=== PATIENT | female | born 2000 | race Caucasian/White ===

== ENCOUNTER 2019-04-13 04:02 | Emergency (ER) | payer OTHER, SELFPAY ==
--- NOTE | 2019-04-13 04:04 | ED.CHESTPAIN ---
HPI - Chest Pain <Prasad Hunter DO - Last Filed: 04/13/19 17:34> General Chief Complaint: Chest Pain Stated Complaint: woke up with chest pain right side Time Seen by Provider: 04/13/19 04:04 Source: patient and family Mode of arrival: ambulatory Limitations: no limitations History of Present Illness HPI narrative: 18-year-old female nonsmoker with benign medical history presents with the chief complaint of right-sided sharp and stabbing chest pain that radiates around to her back. It is made worse with palpation and some range of motion. She denies any recent illness such as runny nose, sneezing or coughing. Patient denies , has IUD Related Data Previous Rx's Medication Instructions Recorded cephalexin [Keflex] 500 mg PO QID 5 Days #20 cap 04/13/19 Review of Systems <Prasad Hunter DO - Last Filed: 04/13/19 17:34> Constitutional Denies chills, Denies fever(s), Denies lethargy and Denies weakness Eyes Denies change in vision, Denies eye discharge, Denies irritation and Denies loss of vision ENT Ears, Nose, Mouth, and Throat: Denies change in voice, Denies neck pain and Denies sore throat Cardiovascular Reports chest pain, Denies irregular heart rhythm, Denies lightheadedness, Denies palpitations, Denies dyspnea, Denies dyspnea on exertion and Denies orthopnea Respiratory Denies cough, Denies dyspnea, Denies dyspnea on exertion and Denies wheezing Gastrointestinal Gastrointestinal: Denies abdominal pain, Denies change in bowel habits, Denies diarrhea, Denies nausea and Denies vomiting Genitourinary Denies hematuria, Denies flank pain, Denies urinary incontinence and Denies urinary urgency Musculoskeletal Denies neck pain Integumentary/Breasts Denies pruritus, Denies erythema, Denies rash and Denies wounds Neurologic Denies confusion, Denies loss of vision and Denies weakness Psychiatric Denies anxiety, Denies confusion, Denies depression, Denies homicidal ideation and Denies suicidal ideation Endocrine Denies palpitations Hematologic/Lymphatic Denies easy bruising Allergic/Immunologic Denies wheezing PFSH <Prasad Hunter DO - Last Filed: 04/13/19 17:34> Social History Smoking Status: Never smoker Social History Smoking Status: Never smoker Exam <Prasad Hunter DO - Last Filed: 04/13/19 17:34> Narrative Exam Narrative: GENERAL: [18] year old patient appears stated age. Well-nourished, well-developed patient, in mild distress. HEAD: Atraumatic. Normocephalic. EYES: Pupils equal round and reactive. Extraocular motions intact. No scleral icterus. No injection or drainage. ENT: Nose without bleeding, purulent drainage. Throat without erythema, tonsillar hypertrophy or exudate. Airway patent. NECK: Trachea midline. Non tender CARDIOVASCULAR: Regular rate and rhythm without murmurs, gallops, or rubs. Right-sided chest tender to palpation RESPIRATORY: Clear to auscultation. Breath sounds equal bilaterally. No wheezes, rales, or rhonchi. GASTROINTESTINAL: Abdomen soft, non-tender, nondistended. EXTREMITIES: No edema or joint tenderness. BACK: Nontender without deformity or crepitance. No flank tenderness. NEURO: AOx3. SKIN: No rash or erythema of visible areas Initial Vital Signs Initial Vital Signs: Vital Signs Temperature 97.6 F 04/13/19 04:05 Pulse Rate 75 04/13/19 04:05 Respiratory Rate 18 04/13/19 04:05 Blood Pressure 118/79 04/13/19 04:05 Pulse Oximetry 100 04/13/19 04:05 <Kenna Farrar DO - Last Filed: 04/13/19 07:58> Initial Vital Signs Initial Vital Signs: Vital Signs Temperature 97.6 F 04/13/19 04:05 Pulse Rate 75 04/13/19 04:05 Respiratory Rate 18 04/13/19 04:05 Blood Pressure 118/79 04/13/19 04:05 Pulse Oximetry 100 04/13/19 04:05 Course <Prasad Hunter DO - Last Filed: 04/13/19 17:34> Orders Ordered: ED Orders 04/13/19 EKG-12 Lead Stat 04/13/19 04:26 XR chest 2V Stat 04/13/19 06:00 Basic Metabolic Panel Stat Complete Blood Count AUTO DIFF Stat D Dimer Stat Troponin I Stat 04/13/19 07:33 Urine Microscopic Stat 04/13/19 07:35 CT angio chest PE protocol Stat Vital Signs - 8 hr 04/13/19 04:05 04/13/19 06:23 Temperature 97.6 F Pulse Rate 75 66 Respiratory Rate 18 16 Blood Pressure 118/79 Blood Pressure [Right Arm] 105/57 L Pulse Oximetry 100 98 <Kenna Farrar DO - Last Filed: 04/13/19 07:58> Orders Ordered: ED Orders 04/13/19 EKG-12 Lead Stat 04/13/19 04:26 XR chest 2V Stat 04/13/19 06:00 Basic Metabolic Panel Stat Complete Blood Count AUTO DIFF Stat D Dimer Stat Troponin I Stat 04/13/19 07:33 Urine Microscopic Stat 04/13/19 07:35 CT angio chest PE protocol Stat Vital Signs - 8 hr 04/13/19 04:05 04/13/19 06:23 Temperature 97.6 F Pulse Rate 75 66 Respiratory Rate 18 16 Blood Pressure 118/79 Blood Pressure [Right Arm] 105/57 L Pulse Oximetry 100 98 MDM - Chest Pain <Prasad Hunter DO - Last Filed: 04/13/19 17:34> Lab Data Result diagrams: 04/13/19 06:00 04/13/19 06:00 Lab Results 04/13/19 04/13/19 04/13/19 Range/Units 06:00 06:00 06:00 WBC 5.4 (4.5-11.0) X10^3/uL RBC 3.97 L (4.0-5.2) X10^6/uL Hgb 12.2 (12.0-16.0) g/dL Hct 35.6 L (36-46) % MCV 89.7 (80-100) fL MCH 30.8 (26-34) PG MCHC 34.3 (30-36) % RDW 12.7 (11.6-14.8) % Plt Count 143 L (150-400) X10^3/uL Neut % (Auto) 62.4 (50-75) % Lymph % (Auto) 27.1 (25-40) % [place] % (Auto) 7.7 (3-14) % Eos % (Auto) 2.4 (2-4) % Baso % (Auto) 0.4 (0-2) % Neut # (Auto) 3300 (2030-8460) /uL Lymph # (Auto) 1500 (7550-6442) /uL [place] # (Auto) 400 (0-900) /uL Eos # (Auto) 100 (0-450) /uL Baso # (Auto) 0 (0-100) /uL D-Dimer 426 H (<230) ng/mL Sodium 140 (137-145) mmol/L Potassium 4.3 (3.4-5.1) mmol/L Chloride 106 (98-107) mmol/L Carbon Dioxide 28 (22-32) mmol/L BUN 10 (7-17) mg/dL Creatinine 0.70 (0.52-1.04) mg/dL Estimated GFR > 60.0 (>60) mL/min BUN/Creatinine Ratio 14.3 (6-22) Glucose 88 (70-100) mg/dL Calcium 9.4 (8.4-10.2) mg/dL Troponin I < 0.012 (0.01-0.034) ng/mL Urine RBC (0-5/HPF) Urine WBC (0-5/HPF) Ur Squamous Epith Cells (0-5/HPF) Urine Bacteria (None) Urine Yeast (None) Ur Culture Indicated? Micro UA Comment 04/13/19 Range/Units 07:33 WBC (4.5-11.0) X10^3/uL RBC (4.0-5.2) X10^6/uL Hgb (12.0-16.0) g/dL Hct (36-46) % MCV (80-100) fL MCH (26-34) PG MCHC (30-36) % RDW (11.6-14.8) % Plt Count (150-400) X10^3/uL Neut % (Auto) (50-75) % Lymph % (Auto) (25-40) % [place] % (Auto) (3-14) % Eos % (Auto) (2-4) % Baso % (Auto) (0-2) % Neut # (Auto) (2302-1005) /uL Lymph # (Auto) (1629-9191) /uL [place] # (Auto) (0-900) /uL Eos # (Auto) (0-450) /uL Baso # (Auto) (0-100) /uL D-Dimer (<230) ng/mL Sodium (137-145) mmol/L Potassium (3.4-5.1) mmol/L Chloride (98-107) mmol/L Carbon Dioxide (22-32) mmol/L BUN (7-17) mg/dL Creatinine (0.52-1.04) mg/dL Estimated GFR (>60) mL/min BUN/Creatinine Ratio (6-22) Glucose (70-100) mg/dL Calcium (8.4-10.2) mg/dL Troponin I (0.01-0.034) ng/mL Urine RBC 0-1/hpf (0-5/HPF) Urine WBC 5-10/hpf H (0-5/HPF) Ur Squamous Epith Cells 10-30 /hpf H (0-5/HPF) Urine Bacteria Many (>30) H (None) Urine Yeast 0-1/hpf (None) Ur Culture Indicated? Culture not indicate Micro UA Comment Point of Care Testing Test Results Negative Urine Dip Bedside Urine Glucose Negative Bedside Urine Bilirubin - Negative Bedside Urine Ketone +/- 5 Urine Specific [place] 1.030 Bedside Urine Occult Blood +/- Bedside Urine pH 6.0 Bedside Urine Protein - Negative Bedside Urine Urobilinogen +/- 1mg Bedside Urine Nitrite - Negative Bedside Urine Leukocytes ++ 125 Esterase <Kenna Farrar, DO - Last Filed: 04/13/19 07:58> Lab Data Attestation: I reviewed the patient's lab results. Lab Results 04/13/19 04/13/19 04/13/19 Range/Units 06:00 06:00 06:00 WBC 5.4 (4.5-11.0) X10^3/uL RBC 3.97 L (4.0-5.2) X10^6/uL Hgb 12.2 (12.0-16.0) g/dL Hct 35.6 L (36-46) % MCV 89.7 (80-100) fL MCH 30.8 (26-34) PG MCHC 34.3 (30-36) % RDW 12.7 (11.6-14.8) % Plt Count 143 L (150-400) X10^3/uL Neut % (Auto) 62.4 (50-75) % Lymph % (Auto) 27.1 (25-40) % [place] % (Auto) 7.7 (3-14) % Eos % (Auto) 2.4 (2-4) % Baso % (Auto) 0.4 (0-2) % Neut # (Auto) 3300 (8505-8166) /uL Lymph # (Auto) 1500 (2305-5018) /uL [place] # (Auto) 400 (0-900) /uL Eos # (Auto) 100 (0-450) /uL Baso # (Auto) 0 (0-100) /uL D-Dimer 426 H (<230) ng/mL Sodium 140 (137-145) mmol/L Potassium 4.3 (3.4-5.1) mmol/L Chloride 106 (98-107) mmol/L Carbon Dioxide 28 (22-32) mmol/L BUN 10 (7-17) mg/dL Creatinine 0.70 (0.52-1.04) mg/dL Estimated GFR > 60.0 (>60) mL/min BUN/Creatinine Ratio 14.3 (6-22) Glucose 88 (70-100) mg/dL Calcium 9.4 (8.4-10.2) mg/dL Troponin I < 0.012 (0.01-0.034) ng/mL Urine RBC (0-5/HPF) Urine WBC (0-5/HPF) Ur Squamous Epith Cells (0-5/HPF) Urine Bacteria (None) Urine Yeast (None) Ur Culture Indicated? Micro UA Comment 04/13/19 Range/Units 07:33 WBC (4.5-11.0) X10^3/uL RBC (4.0-5.2) X10^6/uL Hgb (12.0-16.0) g/dL Hct (36-46) % MCV (80-100) fL MCH (26-34) PG MCHC (30-36) % RDW (11.6-14.8) % Plt Count (150-400) X10^3/uL Neut % (Auto) (50-75) % Lymph % (Auto) (25-40) % [place] % (Auto) (3-14) % Eos % (Auto) (2-4) % Baso % (Auto) (0-2) % Neut # (Auto) (2141-6769) /uL Lymph # (Auto) (5067-7702) /uL [place] # (Auto) (0-900) /uL Eos # (Auto) (0-450) /uL Baso # (Auto) (0-100) /uL D-Dimer (<230) ng/mL Sodium (137-145) mmol/L Potassium (3.4-5.1) mmol/L Chloride (98-107) mmol/L Carbon Dioxide (22-32) mmol/L BUN (7-17) mg/dL Creatinine (0.52-1.04) mg/dL Estimated GFR (>60) mL/min BUN/Creatinine Ratio (6-22) Glucose (70-100) mg/dL Calcium (8.4-10.2) mg/dL Troponin I (0.01-0.034) ng/mL Urine RBC 0-1/hpf (0-5/HPF) Urine WBC 5-10/hpf H (0-5/HPF) Ur Squamous Epith Cells 10-30 /hpf H (0-5/HPF) Urine Bacteria Many (>30) H (None) Urine Yeast 0-1/hpf (None) Ur Culture Indicated? Culture not indicate Micro UA Comment Point of Care Testing Test Results Negative Urine Dip Bedside Urine Glucose Negative Bedside Urine Bilirubin - Negative Bedside Urine Ketone +/- 5 Urine Specific [place] 1.030 Bedside Urine Occult Blood +/- Bedside Urine pH 6.0 Bedside Urine Protein - Negative Bedside Urine Urobilinogen +/- 1mg Bedside Urine Nitrite - Negative Bedside Urine Leukocytes ++ [address] scan - chest: Radiologist's impression: PROCEDURE: CT ANGIO CHEST PE PROTOCOL INDICATIONS: CP, travel to [place], elevated DDimer TECHNIQUE: After the administration of intravenous contrast, 2 mm thick sections acquired from the pulmonary apices to the posterior costophrenic angles. 3-dimensional maximum intensity projection (MIP) coronal and sagittal reformats were then acquired through the thorax. For radiation dose reduction, the following was used: automated exposure control, adjustment of mA and/or kV according to patient size. COMPARISON: [facility], CR, XR CHEST 2V, 04/13/2019, 4:26. FINDINGS: Image quality: Excellent. Pulmonary arteries: Pulmonary arteries are normal in size, and demonstrate no intraluminal filling defects to suggest central pulmonary embolism. Lungs and pleura: Lungs are clear. No pleural effusions or pneumothorax. Central and peripheral airways are patent. 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 Heart size is normal, without pericardial effusion. No mediastinal or hilar adenopathy. Thoracic aorta is normal in caliber and enhancement. Esophagus is normal in caliber, without hiatal hernia. Bones and chest wall: No suspicious bony lesions. Ribs and thoracic spine appear intact throughout. Thyroid gland is normal where visualized. No axillary or supraclavicular adenopathy. Abdomen: Small approximately 8mm hepatic cyst. Visualized upper abdominal solid organs appear normal in the early arterial phase of enhancement. IMPRESSION: 1. No pulmonary embolus. 2. No lung consolidation or pleural effusions. Dictated by: Vidhya Rivera MD, PhD on 04/13/2019 at 7:41 MDM Narrative Medical decision making narrative: Patient signed out to me by Dr. Hunter patient seen evaluated by myself. Resting comfortably in the gurney. CT a is negative. At this time she has no signs or symptoms of UTI nonetheless written for antibiotic. I have recommended she not take the antibiotic and LEs that she gets symptoms. She understands this. Also possibly may need further workup as an outpatient but not indicated at this time. Discharge Plan Departure Patient Disposition: Home Clinical Impression: Atypical chest pain Discharge Date/Time: 04/13/19 08:29 Interventions: ED Discharge Assessment Last Done: 04/13/19 08:28 Instructions: DI for Atypical Chest Pain Activity Restrictions/Additional Instructions: *You have been diagnosed with [atypical chest pain] *What to do: *Take medications as directed *Follow up with your primary care provider in 2-3 days, call for an appointment. Let them know you were seen in the Emergency Department and that we ask that you be seen in follow up *Return to ER if you should have any new, worsening or concerning symptoms Prescriptions: New cephalexin [Keflex] 500 mg capsule 500 mg PO QID 5 Days Qty: 20 RF: 0 Stand Alone Forms: Work Release Note
[2019-04-13 04:05] VITALS: BP 118/79; PULSE 75; RESP 18; TEMP 36.4; O2SAT 100; BMI 20.7
--- NOTE | 2019-04-13 04:26 | DI.RAD.S_ITS ---
PROCEDURE: XR CHEST 2V INDICATIONS: Right sided chest pain TECHNIQUE: 2 views of the chest were acquired. COMPARISON: None. FINDINGS: Surgical changes and devices: None. Lungs and pleura: Lungs are clear. No pleural effusions or pneumothorax. Mediastinum: Mediastinal contours are normal. Heart size is normal. Bones and chest wall: No suspicious bony abnormalities. Soft tissues appear unremarkable. IMPRESSION: No acute cardiopulmonary disease process. Dictated by: Vidhya Rivera MD, PhD on 04/13/2019 at 9:16 Approved by: Vidhya Rivera MD, PhD on 04/13/2019 at 9:17
--- NOTE | 2019-04-13 04:29 | ED_ITS ---
HPI - Chest Pain <Prasad Hunter DO - Last Filed: 04/13/19 17:34> General Chief Complaint: Chest Pain Stated Complaint: woke up with chest pain right side Time Seen by Provider: 04/13/19 04:04 Source: patient and family Mode of arrival: ambulatory Limitations: no limitations History of Present Illness HPI narrative: 18-year-old female nonsmoker with benign medical history presents with the chief complaint of right-sided sharp and stabbing chest pain that radiates around to her back. It is made worse with palpation and some range of motion. She denies any recent illness such as runny nose, sneezing or coughing. Patient denies , has IUD Related Data Previous Rx's Medication Instructions Recorded cephalexin [Keflex] 500 mg PO QID 5 Days #20 cap 04/13/19 Review of Systems <Prasad Hunter DO - Last Filed: 04/13/19 17:34> Constitutional Denies chills, Denies fever(s), Denies lethargy and Denies weakness Eyes Denies change in vision, Denies eye discharge, Denies irritation and Denies loss of vision ENT Ears, Nose, Mouth, and Throat: Denies change in voice, Denies neck pain and Denies sore throat Cardiovascular Reports chest pain, Denies irregular heart rhythm, Denies lightheadedness, Denies palpitations, Denies dyspnea, Denies dyspnea on exertion and Denies orthopnea Respiratory Denies cough, Denies dyspnea, Denies dyspnea on exertion and Denies wheezing Gastrointestinal Gastrointestinal: Denies abdominal pain, Denies change in bowel habits, Denies diarrhea, Denies nausea and Denies vomiting Genitourinary Denies hematuria, Denies flank pain, Denies urinary incontinence and Denies urinary urgency Musculoskeletal Denies neck pain Integumentary/Breasts Denies pruritus, Denies erythema, Denies rash and Denies wounds Neurologic Denies confusion, Denies loss of vision and Denies weakness Psychiatric Denies anxiety, Denies confusion, Denies depression, Denies homicidal ideation and Denies suicidal ideation Endocrine Denies palpitations Hematologic/Lymphatic Denies easy bruising Allergic/Immunologic Denies wheezing PFSH <Prasad Hunter DO - Last Filed: 04/13/19 17:34> Social History Smoking Status: Never smoker Social History (Reviewed 08/19/19 @ 04:42 by BLANQUITA Presley Smoking Status: Never smoker Exam <Prasad Hunter DO - Last Filed: 04/13/19 17:34> Narrative Exam Narrative: GENERAL: [18] year old patient appears stated age. Well- nourished, well-developed patient, in mild distress. HEAD: Atraumatic. Normocephalic. EYES: Pupils equal round and reactive. Extraocular motions intact. No scleral i cterus. No injection or drainage. ENT: Nose without bleeding, purulent drainage. Throat without erythema, tonsillar hypertrophy or exudate. Airway patent. NECK: Trachea midline. Non tender CARDIOVASCULAR: Regular rate and rhythm without murmurs, gallops, or rubs. Right-sided chest tender to palpation RESPIRATORY: Clear to auscultation. Breath sounds equal bilaterally. No wheezes, rales, or rhonchi. GASTROINTESTINAL: Abdomen soft, non-tender, nondistended. EXTREMITIES: No edema or joint tenderness. BACK: Nontender without deformity or crepitance. No flank tenderness. NEURO: AOx3. SKIN: No rash or erythema of visible areas Initial Vital Signs Initial Vital Signs: Vital Signs Temperature 97.6 F 04/13/19 04:05 Pulse Rate 75 04/13/19 04:05 Respiratory Rate 18 04/13/19 04:05 Blood Pressure 118/79 04/13/19 04:05 Pulse Oximetry 100 04/13/19 04:05 <Kenna Farrar DO - Last Filed: 04/13/19 07:58> Initial Vital Signs Initial Vital Signs: Vital Signs Temperature 97.6 F 04/13/19 04:05 Pulse Rate 75 04/13/19 04:05 Respiratory Rate 18 04/13/19 04:05 Blood Pressure 118/79 04/13/19 04:05 Pulse Oximetry 100 04/13/19 04:05 Course <Prasad Hunter DO - Last Filed: 04/13/19 17:34> Orders Ordered: ED Orders 04/13/19 EKG-12 Lead Stat 04/13/19 04:26 XR chest 2V Stat 04/13/19 06:00 Basic Metabolic Panel Stat Complete Blood Count AUTO DIFF Stat D Dimer Stat Troponin I Stat 04/13/19 07:33 Urine Microscopic Stat 04/13/19 07:35 CT angio chest PE protocol Stat Vital Signs - 8 hr 04/13/19 04:05 04/13/19 06:23 Temperature 97.6 F Pulse Rate 75 66 Respiratory Rate 18 16 Blood Pressure 118/79 Blood Pressure [Right Arm] 105/57 L Pulse Oximetry 100 98 <Kenna Farrar DO - Last Filed: 04/13/19 07:58> Orders Ordered: ED Orders 04/13/19 EKG-12 Lead Stat 04/13/19 04:26 XR chest 2V Stat 04/13/19 06:00 Basic Metabolic Panel Stat Complete Blood Count AUTO DIFF Stat D Dimer Stat Troponin I Stat 04/13/19 07:33 Urine Microscopic Stat 04/13/19 07:35 CT angio chest PE protocol Stat Vital Signs - 8 hr 04/13/19 04:05 04/13/19 06:23 Temperature 97.6 F Pulse Rate 75 66 Respiratory Rate 18 16 Blood Pressure 118/79 Blood Pressure [Right Arm] 105/57 L Pulse Oximetry 100 98 MDM - Chest Pain <Prasad Hunter DO - Last Filed: 04/13/19 17:34> Lab Data Result diagrams: 04/13/19 06:00 04/13/19 06:00 Lab Results 04/13/19 04/13/19 04/13/19 Range/Units 06:00 06:00 06:00 WBC 5.4 (4.5-11.0) X10^3/uL RBC 3.97 L (4.0-5.2) X10^6/uL Hgb 12.2 (12.0-16.0) g/dL Hct 35.6 L (36-46) % MCV 89.7 (80-100) fL MCH 30.8 (26-34) PG MCHC 34.3 (30-36) % RDW 12.7 (11.6-14.8) % Plt Count 143 L (150-400) X10^3/uL Neut % (Auto) 62.4 (50-75) % Lymph % (Auto) 27.1 (25-40) % [place] % (Auto) 7.7 (3-14) % Eos % (Auto) 2.4 (2-4) % Baso % (Auto) 0.4 (0-2) % Neut # (Auto) 3300 (2814-6903) /uL Lymph # (Auto) 1500 (0979-3889) /uL [place] # (Auto) 400 (0-900) /uL Eos # (Auto) 100 (0-450) /uL Baso # (Auto) 0 (0-100) /uL D-Dimer 426 H (<230) ng/mL Sodium 140 (137-145) mmol/L Potassium 4.3 (3.4-5.1) mmol/L Chloride 106 (98-107) mmol/L Carbon Dioxide 28 (22-32) mmol/L BUN 10 (7-17) mg/dL Creatinine 0.70 (0.52-1.04) mg/dL Estimated GFR > 60.0 (>60) mL/min BUN/Creatinine Ratio 14.3 (6-22) Glucose 88 (70-100) mg/dL Calcium 9.4 (8.4-10.2) mg/dL Troponin I < 0.012 (0.01-0.034) ng/mL Urine RBC (0-5/HPF) Urine WBC (0-5/HPF) Ur Squamous Epith Cells (0-5/HPF) Urine Bacteria (None) Urine Yeast (None) Ur Culture Indicated? Micro UA Comment 04/13/19 Range/Units 07:33 WBC (4.5-11.0) X10^3/uL RBC (4.0-5.2) X10^6/uL Hgb (12.0-16.0) g/dL Hct (36-46) % MCV (80-100) fL MCH (26-34) PG MCHC (30-36) % RDW (11.6-14.8) % Plt Count (150-400) X10^3/uL Neut % (Auto) (50-75) % Lymph % (Auto) (25-40) % [place] % (Auto) (3-14) % Eos % (Auto) (2-4) % Baso % (Auto) (0-2) % Neut # (Auto) (0458-0265) /uL Lymph # (Auto) (0826-6739) /uL [place] # (Auto) (0-900) /uL Eos # (Auto) (0-450) /uL Baso # (Auto) (0-100) /uL D-Dimer (<230) ng/mL Sodium (137-145) mmol/L Potassium (3.4-5.1) mmol/L Chloride (98-107) mmol/L Carbon Dioxide (22-32) mmol/L BUN (7-17) mg/dL Creatinine (0.52-1.04) mg/dL Estimated GFR (>60) mL/min BUN/Creatinine Ratio (6-22) Glucose (70-100) mg/dL Calcium (8.4-10.2) mg/dL Troponin I (0.01-0.034) ng/mL Urine RBC 0-1/hpf (0-5/HPF) Urine WBC 5-10/hpf H (0-5/HPF) Ur Squamous Epith Cells 10-30 /hpf H (0-5/HPF) Urine Bacteria Many (>30) H (None) Urine Yeast 0-1/hpf (None) Ur Culture Indicated? Culture not indicate Micro UA Comment Point of Care Testing Test Results Negative Urine Dip Bedside Urine Glucose Negative Bedside Urine Bilirubin - Negative Bedside Urine Ketone +/- 5 Urine Specific [place] 1.030 Bedside Urine Occult Blood +/- Bedside Urine pH 6.0 Bedside Urine Protein - Negative Bedside Urine Urobilinogen +/- 1mg Bedside Urine Nitrite - Negative Bedside Urine Leukocytes ++ 125 Esterase <Kenna Farrar, DO - Last Filed: 04/13/19 07:58> Lab Data Attestation: I reviewed the patient's lab results. Lab Results 04/13/19 04/13/19 04/13/19 Range/Units 06:00 06:00 06:00 WBC 5.4 (4.5-11.0) X10^3/uL RBC 3.97 L (4.0-5.2) X10^6/uL Hgb 12.2 (12.0-16.0) g/dL Hct 35.6 L (36-46) % MCV 89.7 (80-100) fL MCH 30.8 (26-34) PG MCHC 34.3 (30-36) % RDW 12.7 (11.6-14.8) % Plt Count 143 L (150-400) X10^3/uL Neut % (Auto) 62.4 (50-75) % Lymph % (Auto) 27.1 (25-40) % [place] % (Auto) 7.7 (3-14) % Eos % (Auto) 2.4 (2-4) % Baso % (Auto) 0.4 (0-2) % Neut # (Auto) 3300 (1523-3785) /uL Lymph # (Auto) 1500 (1690-7072) /uL [place] # (Auto) 400 (0-900) /uL Eos # (Auto) 100 (0-450) /uL Baso # (Auto) 0 (0-100) /uL D-Dimer 426 H (<230) ng/mL Sodium 140 (137-145) mmol/L Potassium 4.3 (3.4-5.1) mmol/L Chloride 106 (98-107) mmol/L Carbon Dioxide 28 (22-32) mmol/L BUN 10 (7-17) mg/dL Creatinine 0.70 (0.52-1.04) mg/dL Estimated GFR > 60.0 (>60) mL/min BUN/Creatinine Ratio 14.3 (6-22) Glucose 88 (70-100) mg/dL Calcium 9.4 (8.4-10.2) mg/dL Troponin I < 0.012 (0.01-0.034) ng/mL Urine RBC (0-5/HPF) Urine WBC (0-5/HPF) Ur Squamous Epith Cells (0-5/HPF) Urine Bacteria (None) Urine Yeast (None) Ur Culture Indicated? Micro UA Comment 04/13/19 Range/Units 07:33 WBC (4.5-11.0) X10^3/uL RBC (4.0-5.2) X10^6/uL Hgb (12.0-16.0) g/dL Hct (36-46) % MCV (80-100) fL MCH (26-34) PG MCHC (30-36) % RDW (11.6-14.8) % Plt Count (150-400) X10^3/uL Neut % (Auto) (50-75) % Lymph % (Auto) (25-40) % [place] % (Auto) (3-14) % Eos % (Auto) (2-4) % Baso % (Auto) (0-2) % Neut # (Auto) (0265-1496) /uL Lymph # (Auto) (7976-6914) /uL [place] # (Auto) (0-900) /uL Eos # (Auto) (0-450) /uL Baso # (Auto) (0-100) /uL D-Dimer (<230) ng/mL Sodium (137-145) mmol/L Potassium (3.4-5.1) mmol/L Chloride (98-107) mmol/L Carbon Dioxide (22-32) mmol/L BUN (7-17) mg/dL Creatinine (0.52-1.04) mg/dL Estimated GFR (>60) mL/min BUN/Creatinine Ratio (6-22) Glucose (70-100) mg/dL Calcium (8.4-10.2) mg/dL Troponin I (0.01-0.034) ng/mL Urine RBC 0-1/hpf (0-5/HPF) Urine WBC 5-10/hpf H (0-5/HPF) Ur Squamous Epith Cells 10-30 /hpf H (0-5/HPF) Urine Bacteria Many (>30) H (None) Urine Yeast 0-1/hpf (None) Ur Culture Indicated? Culture not indicate Micro UA Comment Point of Care Testing Test Results Negative Urine Dip Bedside Urine Glucose Negative Bedside Urine Bilirubin - Negative Bedside Urine Ketone +/- 5 Urine Specific [place] 1.030 Bedside Urine Occult Blood +/- Bedside Urine pH 6.0 Bedside Urine Protein - Negative Bedside Urine Urobilinogen +/- 1mg Bedside Urine Nitrite - Negative Bedside Urine Leukocytes ++ [address] scan - chest: Radiologist's impression: PROCEDURE: CT ANGIO CHEST PE PROTOCOL INDICATIONS: CP, travel to [place], elevated DDimer TECHNIQUE: After the administration of intravenous contrast, 2 mm thick sections acquired from the pulmonary apices to the posterior costophrenic angles. 3-dimensional maximum intensity projection (MIP) coronal and sagittal reformats were then acquired through the thorax. For radiation dose reduction, the following was used: automated exposure control, adjustment of mA and/or kV according to patient size. COMPARISON: [facility], CR, XR CHEST 2V, 04/13/2019, 4:26. FINDINGS: Image quality: Excellent. Pulmonary arteries: Pulmonary arteries are normal in size, and demonstrate no intraluminal filling defects to suggest central pulmonary embolism. Lungs and pleura: Lungs are clear. No pleural effusions or pneumothorax. Central and peripheral airways are patent. 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 Heart size is normal, without pericardial effusion. No mediastinal or hilar adenopathy. Thoracic aorta is normal in caliber and enhancement. Esophagus is normal in caliber, without hiatal hernia. Bones and chest wall: No suspicious bony lesions. Ribs and thoracic spine appear intact throughout. Thyroid gland is normal where visualized. No axillary or supraclavicular adenopathy. Abdomen: Small approximately 8mm hepatic cyst. Visualized upper abdominal solid organs appear normal in the early arterial phase of enhancement. IMPRESSION: 1. No pulmonary embolus. 2. No lung consolidation or pleural effusions. Dictated by: Vidhya Rivera MD, PhD on 04/13/2019 at 7:41 MDM Narrative Medical decision making narrative: Patient signed out to me by Dr. Hunter patient seen evaluated by myself. Resting comfortably in the gurney. CT a is negative. At this time she has no signs or symptoms of UTI nonetheless written for antibiotic. I have recommended she not take the antibiotic and LEs that she gets symptoms. She understands this. Also possibly may need further workup as an outpatient but not indicated at this time. Discharge Plan Departure Patient Disposition: Home Clinical Impression: Atypical chest pain Discharge Date/Time: 04/13/19 08:29 Interventions: ED Discharge Assessment Last Done: 04/13/19 08:28 Instructions: DI for Atypical Chest Pain Activity Restrictions/Additional Instructions: *You have been diagnosed with [atypical chest pain] *What to do: *Take medications as directed *Follow up with your primary care provider in 2-3 days, call for an appointment. Let them know you were seen in the Emergency Department and that we ask that you be seen in follow up *Return to ER if you should have any new, worsening or concerning symptoms Prescriptions: New cephalexin [Keflex] 500 mg capsule 500 mg PO QID 5 Days Qty: 20 RF: 0 Stand Alone Forms: Work Release Note
[2019-04-13 06:11] LABS: Add Manual Diff / Slide Review NO; Basophils Absolute Auto 0 /uL (0-100); Basophils Percent Auto 0.4 % (0-2); Eosinophils Absolute Auto 100 /uL (0-450); Eosinophils Percent Auto 2.4 % (2-4); Hematocrit 35.6 % (36-46); Hemoglobin 12.2 g/dL (12.0-16.0); Lymphocytes Absolute Auto 1500 /uL (1100-4500); Lymphocytes Percent Auto 27.1 % (25-40); Mean Corpuscular HGB Conc 34.3 % (30-36); Mean Corpuscular Hemoglobin 30.8 PG (26-34); Mean Corpuscular Volume 89.7 fL (80-100); Monocytes Absolute Auto 400 /uL (0-900); Monocytes Percent Auto 7.7 % (3-14); Neutrophils Absolute Auto 3300 /uL (1500-7000); Neutrophils Percent Auto 62.4 % (50-75); Platelet Count 143 X10^3/uL (150-400); Red Blood Cell Count 3.97 X10^6/uL (4.0-5.2); Red Cell Distribution Width 12.7 % (11.6-14.8); White Blood Cell Count 5.4 X10^3/uL (4.5-11.0)
[2019-04-13 06:18] LABS: D Dimer 426 ng/mL (<230)
[2019-04-13 06:20] LABS: BUN Creatinine Ratio 14.3 (6-22); Blood Urea Nitrogen 10 mg/dL (7-17); Calcium 9.4 mg/dL (8.4-10.2); Carbon Dioxide 28 mmol/L (22-32); Chloride 106 mmol/L (98-107); Estimated Glomerular Filt Rate > 60.0 mL/min (>60); Glucose 88 mg/dL (70-100); HEMOLYSIS < 15 (0-50); Potassium 4.3 mmol/L (3.4-5.1); Sodium 140 mmol/L (137-145)
[2019-04-13 06:23] VITALS: BP 105/57; PULSE 66; RESP 16; O2SAT 98
[2019-04-13 06:32] LABS: Troponin I < 0.012 ng/mL (0.01-0.034)
--- NOTE | 2019-04-13 07:35 | DI.CT.S_ITS ---
PROCEDURE: CT ANGIO CHEST PE PROTOCOL INDICATIONS: CP, travel to [place], elevated DDimer TECHNIQUE: After the administration of intravenous contrast, 2 mm thick sections acquired from the pulmonary apices to the posterior costophrenic angles. 3-dimensional maximum intensity projection (MIP) coronal and sagittal reformats were then acquired through the thorax. For radiation dose reduction, the following was used: automated exposure control, adjustment of mA and/or kV according to patient size. COMPARISON: [facility], CR, XR CHEST 2V, 04/13/2019, 4:26. FINDINGS: Image quality: Excellent. Pulmonary arteries: Pulmonary arteries are normal in size, and demonstrate no intraluminal filling defects to suggest central pulmonary embolism. Lungs and pleura: Lungs are clear. No pleural effusions or pneumothorax. Central and peripheral airways are patent. 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 Heart size is normal, without pericardial effusion. No mediastinal or hilar adenopathy. Thoracic aorta is normal in caliber and enhancement. Esophagus is normal in caliber, without hiatal hernia. Bones and chest wall: No suspicious bony lesions. Ribs and thoracic spine appear intact throughout. Thyroid gland is normal where visualized. No axillary or supraclavicular adenopathy. Abdomen: Small approximately 8mm hepatic cyst. Visualized upper abdominal solid organs appear normal in the early arterial phase of enhancement. IMPRESSION: 1. No pulmonary embolus. 2. No lung consolidation or pleural effusions. Dictated by: Vidhya Rivera MD, PhD on 04/13/2019 at 7:41 Approved by: Vidhya Rivera MD, PhD on 04/13/2019 at 7:46
[2019-04-13 07:51] LABS: Bacteria Urine Many (>30); RBC Urine 0-1/HPF (0-5/HPF); Squamous Epithelial Cell Urine 10-30 /HPF (0-5/HPF); WBC Urine 5-10/HPF (0-5/HPF)
[2019-04-13 08:06] VITALS: BP 98/62; PULSE 59; RESP 15; O2SAT 99
== END 2019-04-13 08:29 | disposition home or self-care (01) ==
PROVIDERS: Emergency Medicine; Emergency Provider Emergency Medicine
DX: R07.89 Other chest pain (principal)
CPT/HCPCS: 36415; 71046; 71275; 80048; 81003; 81015; 81025; 84484; 85025; 85379; 93005; 99283; 99285; Q9967

== ENCOUNTER 2023-02-13 02:53 | Emergency (ER) | payer OTHER, SELFPAY ==
--- NOTE | 2023-02-13 02:57 | ED.GENADULT ---
HPI - General Adult General Chief complaint: Back Pain/Injury Stated complaint: back pain Time Seen by Provider: 02/13/23 02:57 Source: patient Mode of arrival: Ambulatory Limitations: no limitations History of Present Illness HPI narrative: Patient is an otherwise healthy 22-year-old female here for evaluation of right-sided flank pain. She states that last evening she started to have some discomfort in the right flank but it really got worse overnight. No vomiting. No urinary symptoms. No prior abdominal surgeries. No constipation. No change in bowel habits. No vaginal bleeding. No fevers. She states that it is not worse with palpation but does get somewhat worse with movement. Has not tried anything for the symptoms prior to arrival. Related Data Previous Rx's Medication Instructions Recorded cephalexin 500 mg capsule 500 mg PO BID 5 days #10 caps 02/13/23 Review of Systems Review of Systems ROS Unobtainable: All systems reviewed & are unremarkable except as noted in HPI and below Patient History Social History Smoking Status: Never smoker Smoking Status: Never smoker alcohol intake frequency: 0-2 drinks per day Substance Use Type: does not use Exam Initial Vital Signs Initial Vital Signs: Vital Signs Temperature 98.9 F 02/13/23 03:04 Pulse Rate 97 H 02/13/23 03:04 Respiratory Rate 18 02/13/23 03:04 Blood Pressure 111/69 02/13/23 03:04 Pulse Oximetry 100 02/13/23 03:04 Oxygen Delivery Method Room Air 02/13/23 03:04 HENMT Head: normal to inspection and normocephalic Resp Effort & Inspection: normal respiratory effort Cardio Rate: regular rate GI Inspection: normal to inspection and non-distended Palpation: soft and No tender Back/Spine/Pelvis Back: No CVA tenderness Skin General: no rashes or lesions noted Course Orders Ordered: ED Orders 02/13/23 03:05 Complete Blood Count AUTO DIFF Stat Comprehensive Metabolic Panel Stat Lipase Stat Test Serum,Qual Stat 02/13/23 03:06 CT kidney ureter bladder (KUB) Stat 02/13/23 03:45 UA Complete [Urinalysis and Microscopic] Stat Urine Culture Stat Discontinued Medications Cephalexin HCl (Cephalexin 250 Mg Capsule) 500 mg PO NOW ONE Stop: 02/13/23 04:12 Ketorolac Tromethamine (Ketorolac 30 Mg/Ml Vial) 30 mg IV NOW ONE Stop: 02/13/23 03:07 Last Admin: 02/13/23 03:12 Dose: 30 mg Documented By: Ondansetron HCl (Ondansetron 4 Mg/2 Ml Inj) 4 mg IV NOW ONE Stop: 02/13/23 03:07 Last Admin: 02/13/23 03:12 Dose: 4 mg Documented By: Vital Signs Vital signs: Vital Signs - 8 hr 02/13/23 03:04 Temperature 98.9 F Pulse Rate 97 H Respiratory Rate 18 Blood Pressure 111/69 Pulse Oximetry 100 Oxygen Delivery Method Room Air Medical Decision Making Lab Data Lab results reviewed: Yes I reviewed the patient's lab results. 02/13/23 03:05 02/13/23 03:05 Labs: Lab Results 02/13/23 02/13/23 02/13/23 Range/Units 03:05 03:05 03:05 WBC 8.6 (4.5-11.0) X10^3/uL RBC 4.24 (4.0-5.2) X10^6/uL Hgb 12.5 (12.0-16.0) g/dL Hct 36.5 (36-46) % MCV 86.1 (80-100) fL MCH 29.4 (26-34) PG MCHC 34.2 (30-36) % RDW 13.3 (11.6-14.8) % Plt Count 146 L (150-400) X10^3/uL Neut % (Auto) 85.4 H (50-75) % Lymph % (Auto) 9.1 L (25-40) % [place] % (Auto) 4.8 (3-14) % Eos % (Auto) 0.3 L (2-4) % Baso % (Auto) 0.4 (0-2) % Neut # (Auto) 7300 H (6936-8737) /uL Lymph # (Auto) 800 L (4102-4625) /uL [place] # (Auto) 400 (0-900) /uL Eos # (Auto) 0 (0-450) /uL Baso # (Auto) 0 (0-100) /uL Sodium 138 (137-145) mmol/L Potassium 3.5 (3.4-5.1) mmol/L Chloride 103 (98-107) mmol/L Carbon Dioxide 29 (22-32) mmol/L BUN 11 (7-17) mg/dL Creatinine 0.70 (0.52-1.04) mg/dL Estimated GFR > 60 (>60) mL/min BUN/Creatinine Ratio 15.7 (6-22) Glucose 109 H (70-100) mg/dL Calcium 8.8 (8.4-10.2) mg/dL Total Bilirubin 0.9 (0.2-1.3) mg/dL AST 22 (14-36) IU/L ALT 15 (<35) IU/L Alkaline Phosphatase 46 (38-126) U/L Total Protein 7.3 (6.3-8.2) g/dL Albumin 4.1 (3.5-5.0) g/dL Globulin 3.2 (1.7-4.1) g/dL Albumin/Globulin Ratio 1.3 (1.0-2.8) Lipase 61 (23-300) U/L Serum , Qual Negative (Negative) Urine Color Urine Appearance Urine pH (4.5-8.0) Ur Specific [place] (1.000-1.035) Urine Protein (Negative) Urine Glucose (UA) (Negative) g/dL Urine Ketones (NEGATIVE) Urine Occult Blood (Negative) Urine Nitrate (Negative) Urine Bilirubin (NEGATIVE) Urine Urobilinogen (0.2) E.U./dL Ur Leukocyte Esterase (NEGATIVE) Urine RBC (0-5/HPF) Urine WBC (0-5/HPF) Ur Squamous Epith Cells (0-5/HPF) Urine Bacteria (None) Ur Culture Indicated? 02/13/23 Range/Units 03:45 WBC (4.5-11.0) X10^3/uL RBC (4.0-5.2) X10^6/uL Hgb (12.0-16.0) g/dL Hct (36-46) % MCV (80-100) fL MCH (26-34) PG MCHC (30-36) % RDW (11.6-14.8) % Plt Count (150-400) X10^3/uL Neut % (Auto) (50-75) % Lymph % (Auto) (25-40) % [place] % (Auto) (3-14) % Eos % (Auto) (2-4) % Baso % (Auto) (0-2) % Neut # (Auto) (2609-9400) /uL Lymph # (Auto) (3205-1334) /uL [place] # (Auto) (0-900) /uL Eos # (Auto) (0-450) /uL Baso # (Auto) (0-100) /uL Sodium (137-145) mmol/L Potassium (3.4-5.1) mmol/L Chloride (98-107) mmol/L Carbon Dioxide (22-32) mmol/L BUN (7-17) mg/dL Creatinine (0.52-1.04) mg/dL Estimated GFR (>60) mL/min BUN/Creatinine Ratio (6-22) Glucose (70-100) mg/dL Calcium (8.4-10.2) mg/dL Total Bilirubin (0.2-1.3) mg/dL AST (14-36) IU/L ALT (<35) IU/L Alkaline Phosphatase (38-126) U/L Total Protein (6.3-8.2) g/dL Albumin (3.5-5.0) g/dL Globulin (1.7-4.1) g/dL Albumin/Globulin Ratio (1.0-2.8) Lipase (23-300) U/L Serum , Qual (Negative) Urine Color Yellow Urine Appearance Slightly cloudy Urine pH 7.0 (4.5-8.0) Ur Specific [place] 1.015 (1.000-1.035) Urine Protein Negative (Negative) Urine Glucose (UA) Negative (Negative) g/dL Urine Ketones Negative (NEGATIVE) Urine Occult Blood 1+ H (Negative) Urine Nitrate Positive H (Negative) Urine Bilirubin Negative (NEGATIVE) Urine Urobilinogen 1.0 (0.2) E.U./dL Ur Leukocyte Esterase 1+ H (NEGATIVE) Urine RBC 1-5/hpf (0-5/HPF) Urine WBC 10-30/hpf H (0-5/HPF) Ur Squamous Epith Cells 1-5 /hpf D (0-5/HPF) Urine Bacteria Many (>30) H (None) Ur Culture Indicated? Specimen cultured Urine Dip Bedside Urine Glucose Negative Bedside Urine Ketone - Negative Urine Specific [place] 1.015 Bedside Urine Occult Blood + Bedside Urine pH 6.0 Bedside Urine Protein - Negative Bedside Urine Urobilinogen - Negative Bedside Urine Nitrite + Positive Bedside Urine Leukocytes +++ 500 Esterase Point of care testing: Urine Dip Bedside Urine Glucose Negative Bedside Urine Ketone - Negative Urine Specific [place] 1.015 Bedside Urine Occult Blood + Bedside Urine pH 6.0 Bedside Urine Protein - Negative Bedside Urine Urobilinogen - Negative Bedside Urine Nitrite + Positive Bedside Urine Leukocytes +++ [address] scan - abdomen/pelvis: Radiologist's Impression: No evidence of colitis, diverticulitis, bowel obstruction, obstructive uropathy or acute appendicitis MDM Narrative Medical decision making narrative: After Toradol patient's symptoms greatly improved if not resolved. Her urinalysis today is consistent with a urinary tract infection. Because she is nitrite positive will treat her with antibiotics despite her lack of symptoms. A urine culture was pending at the time of discharge. She was given a dose of antibiotics here in the ER and a prescription for the remainder of the course was sent to the pharmacy of her choice. She was informed that we will contact her for need to change this based on the culture results. There are no signs of kidney stones or other acute surgical pathology noted on the CT scan. There is no inflammation around the right kidney. She is no CVA tenderness. I do have low suspicion for pyelonephritis. We did discuss the possibility that potentially she passed the stone right before the CT scan when she gave us the urine sample however there is no inflammatory changes around the ureter. She does understand the lack of a definitive diagnosis of her right-sided flank pain. She can take ibuprofen if it occurs again or return to the emergency department if her symptoms worsen. She expressed understanding and agreement with plan Discharge Plan Departure Patient Disposition: Home Clinical Impression: UTI (urinary tract infection), Flank pain Instructions: DI for Urinary Tract Infection (UTI) Activity Restrictions/Additional Instructions: A urine culture was pending at the time of her discharge and we will contact you if we need to change any antibiotics. A prescription for antibiotics was sent to the [facility] pharmacy per your request. Please start taking them as directed. Return to the emergency department for new or worsening symptoms. Prescriptions: New cephalexin 500 mg capsule 500 mg PO BID 5 Days Qty: 10 0RF Referrals: ProviderRiki [Primary Care Provider] - Stand Alone Forms: Patient Portal/API
[2023-02-13 03:02] VITALS: O2SAT 100
[2023-02-13 03:03] VITALS: BP 111/69; O2SAT 100
[2023-02-13 03:04] VITALS: BP 111/69; PULSE 97; RESP 18; TEMP 37.2; O2SAT 100; BMI 20.5
--- NOTE | 2023-02-13 03:06 | DI.CT.S_ITS ---
PROCEDURE: CT KIDNEY URETER BLADDER (KUB) INDICATIONS: R sided flank pain eval for stone TECHNIQUE: Axial sections were acquired from the lung bases to the pubic symphysis. Coronal and sagittal reformats were performed. For radiation dose reduction, the following was used: automated exposure control, adjustment of mA and/or kV according to patient size. COMPARISON: None. FINDINGS: Image quality: Excellent. Lung bases: Lung bases are clear. Heart: No significant findings. URINARY: Right Kidney: No stones or hydronephrosis. Right Ureter: No hydroureter. Left Kidney: No stones or hydronephrosis. Left Ureter: No hydroureter. Bladder: Normal wall thickness. No stones. ABDOMEN: Liver: Unremarkable. Gallbladder: Unremarkable. Biliary ducts: Unremarkable. Pancreas: Unremarkable. Spleen: No splenomegaly. Adrenal Glands: Unremarkable. Stomach and Bowel: Stomach, small bowel loops, and colon are unremarkable. Normal appendix Peritoneum: No abnormal intraperitoneal fluid. No free air. Ventral Wall: No hernia. Abdominal Nodes: No enlarged retroperitoneal or mesenteric lymph nodes. Vessels: Aorta and inferior vena cava are normal in size. PELVIS: Pelvic Organs: An IUD is visualized within the uterus. Pelvic Nodes: Unremarkable. Miscellaneous: No inguinal hernias are seen. Bones: Visualized osseous structures appear intact without acute fracture or focal destructive lesion. No acute compression fractures of the imaged spine. IMPRESSION: CT abdomen and pelvis without acute abnormalities to explain patient's right flank pain. Specifically, no evidence for urolithiasis or obstructive uropathy. Normal appendix. No significant discrepancy with the night guard radiology preliminary report. Dictated by: Jorge A Sanchez M.D. on 02/13/2023 at 7:29 Approved by: Jorge A Sanchez M.D. on 02/13/2023 at 7:33
[2023-02-13] MEDS: KETOROLAC 30 MG/ML VIAL IV (03:12)
[2023-02-13] MEDS: ONDANSETRON 4 MG/2 ML INJ IV (03:12)
[2023-02-13 03:17] LABS: Add Manual Diff / Slide Review NO; Basophils Absolute Auto 0 /uL (0-100); Basophils Percent Auto 0.4 % (0-2); Eosinophils Absolute Auto 0 /uL (0-450); Eosinophils Percent Auto 0.3 % (2-4); Hematocrit 36.5 % (36-46); Hemoglobin 12.5 g/dL (12.0-16.0); Lymphocytes Absolute Auto 800 /uL (1100-4500); Lymphocytes Percent Auto 9.1 % (25-40); Mean Corpuscular HGB Conc 34.2 % (30-36); Mean Corpuscular Hemoglobin 29.4 PG (26-34); Mean Corpuscular Volume 86.1 fL (80-100); Monocytes Absolute Auto 400 /uL (0-900); Monocytes Percent Auto 4.8 % (3-14); Neutrophils Absolute Auto 7300 /uL (1500-7000); Neutrophils Percent Auto 85.4 % (50-75); Platelet Count 146 X10^3/uL (150-400); Red Blood Cell Count 4.24 X10^6/uL (4.0-5.2); Red Cell Distribution Width 13.3 % (11.6-14.8); White Blood Cell Count 8.6 X10^3/uL (4.5-11.0)
[2023-02-13 03:23] LABS: Alanine Aminotransferase 15 IU/L (<35); Albumin 4.1 g/dL (3.5-5.0); Albumin Globulin Ratio 1.3 (1.0-2.8); Alkaline Phosphatase 46 U/L (38-126); Aspartate Aminotransferase 22 IU/L (14-36); BUN Creatinine Ratio 15.7 (6-22); Bilirubin Total 0.9 mg/dL (0.2-1.3); Blood Urea Nitrogen 11 mg/dL (7-17); Calcium 8.8 mg/dL (8.4-10.2); Carbon Dioxide 29 mmol/L (22-32); Chloride 103 mmol/L (98-107); Estimated Glomerular Filt Rate > 60 mL/min (>60); Globulin 3.2 g/dL (1.7-4.1); Glucose 109 mg/dL (70-100); HEMOLYSIS < 15 (0-50); Lipase 61 U/L (23-300); Potassium 3.5 mmol/L (3.4-5.1); Sodium 138 mmol/L (137-145); Total Protein 7.3 g/dL (6.3-8.2)
[2023-02-13 03:30] VITALS: PULSE 93; O2SAT 97
[2023-02-13 03:37] LABS: Pregnancy Test Serum,Qual Negative (Negative)
[2023-02-13 03:54] LABS: Bilirubin Urine UA NEGATIVE (NEGATIVE); Color Urine UA YELLOW; Glucose Urine UA NEGATIVE (Negative); Ketones Urine UA NEGATIVE (NEGATIVE); Leukocyte Esterase Urine UA 1+ (NEGATIVE); Nitrite Urine UA POSITIVE (Negative); Occult Blood Urine UA 1+ (Negative); Protein Urine UA NEGATIVE (Negative); Specific Gravity Urine UA 1.015 (1.000-1.035)
[2023-02-13 03:57] LABS: Appearance Urine UA Slightly Cloudy
[2023-02-13 04:00] VITALS: PULSE 89; O2SAT 97
[2023-02-13 04:03] LABS: Bacteria Urine Many (>30); Culture Indicated Urine Specimen Cultured; RBC Urine 1-5/HPF (0-5/HPF); Squamous Epithelial Cell Urine 1-5 /HPF (0-5/HPF); WBC Urine 10-30/HPF (0-5/HPF)
[2023-02-13 04:17] VITALS: BP 102/61; PULSE 85; O2SAT 97
[2023-02-13] MEDS: cephALEXin 250 MG CAPSULE 500 MG PO (04:18)
--- NOTE | 2023-02-13 14:39 | PC.NURSE ---
Patient called the ER today to ask about getting her prescription sent to [facility] in [place] [facility] [place] Provider okayed and sent prescription.
== END 2023-02-13 04:22 | disposition home or self-care (01) ==
PROVIDERS: Emergency Provider Emergency Medicine
DX: N39.0 Urinary tract infection, site not specified (principal); R10.9 Unspecified abdominal pain
CPT/HCPCS: 36415; 74176; 80053; 81001; 81003; 83690; 84703; 85025; 87077; 87086; 87186; 96374; 96375; 99284; J1885; J2405

== ENCOUNTER 2024-03-10 14:43 | Emergency (ER) | payer OTHER, SELFPAY ==
[2024-03-10 15:09] VITALS: BP 106/56; PULSE 71; RESP 16; TEMP 36.8; O2SAT 99; BMI 21.4
[2024-03-10 17:16] VITALS: BP 100/62; PULSE 74; RESP 18; O2SAT 98
--- NOTE | 2024-03-17 13:57 | ED.ANXIETY ---
HPI - Anxiety <Tonia Brooks PA-C - Last Filed: 03/17/24 14:05> General Chief Complaint: Anxiety Stated Complaint: hasn't been able to sleep for two weeks Time Seen by Provider: 03/10/24 15:28 Source: patient Mode of arrival: Family Vehicle History of Present Illness HPI narrative: 23-year-old female with past medical history insomnia, depression, anxiety presents to the ED for worsening insomnia. Patient states she is only able to get about 2 hours of sleep per night. Patient reports difficulty falling asleep and staying asleep. Patient has had some recent life stresses with a separation from her 6 months ago. Patient states that while she does not actually feel like she is very stressed about it, she thinks it might be a contributing factor. She is waiting to see her PCP and her psychiatrist and counselor, but these appointments are about a month away.. She has tried using some [id number] medications including Benadryl, melatonin and Unisom with minimal relief. Denies suicidal ideation, homicidal ideation. Patient is eating and drinking normally. Patient is able to function at work other than feeling very tired due to the lack of sleep. Related Data Previous Rx's Medication Instructions Recorded cephalexin 500 mg capsule 500 mg PO BID #10 caps 02/13/23 hydroxyzine HCl 25 mg tablet 50 mg (2 x 25 mg) PO BEDTIME 30 03/10/24 days #30 tabs Allergies Allergy/AdvReac Type Severity Reaction Status Date / Time No Known Drug Allergies Allergy Verified 02/13/23 04:21 Review of Systems <Tonia Brooks PA-C - Last Filed: 03/17/24 14:05> Constitutional Constitutional: Denies chills, Reports difficulty sleeping, Denies fatigue, Denies fever(s), Denies frequent falls, Denies lethargy and Denies weakness Eyes Eyes: Denies change in vision, Denies eye discharge, Denies irritation and Denies loss of vision ENT Ears, Nose, Mouth, and Throat: Denies change in voice, Denies dizziness, Denies neck pain, Denies sore throat and Denies throat swelling Cardiovascular Cardiovascular: Denies chest pain, Denies irregular heart rhythm, Denies lightheadedness, Denies palpitations, Denies dyspnea, Denies dyspnea on exertion and Denies orthopnea Respiratory Respiratory: Denies cough, Denies dyspnea, Denies dyspnea on exertion and Denies wheezing Gastrointestinal Gastrointestinal: Denies abdominal pain, Denies change in bowel habits, Denies diarrhea, Denies nausea and Denies vomiting Musculoskeletal Musculoskeletal: Denies neck pain and Denies numbness Integumentary/Breasts Skin/Breast: Denies pruritus, Denies erythema, Denies rash and Denies wounds Neurologic Neurologic: Denies behavioral changes, Denies confusion, Denies dizziness, Denies frequent falls, Denies loss of vision, Denies numbness and Denies weakness Psychiatric Psychiatric: Reports anxiety, Denies behavioral changes, Denies confusion, Denies depression, Denies homicidal ideation and Denies suicidal ideation Endocrine Endocrine: Denies fatigue, Denies flushing and Denies palpitations Hematologic/Lymphatic Hematologic/Lymphatic: Denies easy bruising Allergic/Immunologic Allergic/Immunologic: Denies urticaria, Denies throat swelling and Denies wheezing Patient History <Tonia Brooks PA-C - Last Filed: 03/17/24 14:05> Social History Smoking Status: Never smoker Smoking Status: Never smoker alcohol intake frequency: 0-2 drinks per day Substance Use Type: does not use Exam <Tonia Brooks PA-C - Last Filed: 03/17/24 14:05> Narrative Exam Narrative: Const General:?cooperative, healthy appearing and comfortable [facility] Head:?normal to inspection Ears:?hearing grossly normal bilaterally Nose:?external nose normal Face and sinus:?normal facial exam and sinuses nontender Mouth:?oral mucosae normal Throat:?posterior oropharynx normal Eyes General:?appearance normal, both eyes and all related structures Neck Neck:?normal visual inspection and no lymphadenopathy noted Resp Effort & Inspection:?normal respiratory effort Auscultation:?clear to auscultation bilaterally Cardio Rate:?regular rate Rhythm:?regular rhythm Neuro General:?patient alert, patient awake and patient oriented x3; PERRLA; CN 1-12 intact bilaterally; gait is normal Initial Vital Signs Initial Vital Signs: Vital Signs Temperature 98.3 F 03/10/24 15:09 Pulse Rate 71 03/10/24 15:09 Respiratory Rate 16 03/10/24 15:09 Blood Pressure 106/56 L 03/10/24 15:09 Pulse Oximetry 99 03/10/24 15:09 Oxygen Delivery Method Room Air 03/10/24 15:09 <Elen Martínez DO - Last Filed: 03/21/24 07:16> Initial Vital Signs Initial Vital Signs: Vital Signs Temperature 98.3 F 03/10/24 15:09 Pulse Rate 71 03/10/24 15:09 Respiratory Rate 16 03/10/24 15:09 Blood Pressure 106/56 L 03/10/24 15:09 Pulse Oximetry 99 03/10/24 15:09 Oxygen Delivery Method Room Air 03/10/24 15:09 MDM - Anxiety <Tonia Brooks PA-C - Last Filed: 03/17/24 14:05> MDM Narrative Medical decision making narrative: 23-year-old female with past medical history insomnia, depression, anxiety presents to the ED for worsening insomnia. Patient is stable, no suicidal or homicidal ideation. Patient agrees to keep her appointments with PCP and psychiatrist for further evaluation and treatment. Will prescribe hydroxyzine to help patient with insomnia in the meanwhile. ED return precautions were discussed with patient. Patient verbalized understanding. Medical records reviewed: Yes Discharge Plan Departure Patient Disposition: Home Clinical Impression: Insomnia Qualifiers: Insomnia type: unspecified Qualified Code(s): G47.00 - Insomnia, unspecified Activity Restrictions/Additional Instructions: You were evaluated in the ED today for insomnia. You are being prescribed hydroxyzine for the short-term to help you sleep better. As discussed, please follow-up with your primary care provider and psychiatrist for further evaluation and treatment. Return to the ED if you have worsening symptoms. Prescriptions: New hydroxyzine HCl 25 mg tablet 50 mg PO BEDTIME 30 Days Qty: 30 0RF No Action cephalexin 500 mg capsule 500 mg PO BID Qty: 10 0RF Referrals: ProviderRiki [Primary Care Provider] - Stand Alone Forms: Patient Portal/API ED Sign-out <Elen Martínez DO - Last Filed: 03/21/24 07:16> Cosign ED Attending Cosignature Attestation: I was immediately available in the department for consultation.
== END 2024-03-10 17:16 | disposition home or self-care (01) ==
PROVIDERS: Emergency Provider Student in an Organized Health Care Education/Training Program
DX: G47.00 Insomnia, unspecified (principal)
CPT/HCPCS: 99281

== ENCOUNTER 2024-03-31 07:42 | Emergency (ER) | payer OTHER, SELFPAY ==
[2024-03-31 07:48] VITALS: BP 105/64; PULSE 72; RESP 16; TEMP 35.9; O2SAT 100; BMI 21.4
[2024-03-31 07:52] VITALS: BP 105/64; PULSE 72; RESP 16; O2SAT 100
--- NOTE | 2024-03-31 08:21 | ED_ITS ---
HPI - Eye Problem General Chief complaint: Eye Problems Stated complaint: pain in L eye Time Seen by Provider: 03/31/24 07:52 Source: patient Mode of arrival: Ambulatory Limitations: no limitations History of Present Illness HPI Narrative: 23-year-old female with complaint of pain in her left eye starting in the last 12 hours. Patient has not noticed any redness, drainage or clumping of the lashes. Patient states was feeling fine yesterday woke up thought she had an eyelash or foreign body present. She has not been involved in activities such as welding, standing or things that would likely cause foreign bodies the eye. She did try to irrigate it without any improvement. She wears glasses but does not normally wear contacts. States last time she wore contacts which are cosmetic was 2 years ago. She has had an eye evaluation in the past several weeks which she states went well. Denies fevers, no swelling or redness of the lids or face. States it is irritating particularly when she blinks or moves her eye around. Denies any other injuries. Denies any daily medications, no prior surgeries or eye surgeries or interventions. No known drug allergies. Immunizations reported up to date. Related Data Previous Rx's Medication Instructions Recorded cephalexin 500 mg capsule 500 mg PO BID #10 caps 02/13/23 hydroxyzine HCl 25 mg tablet 50 mg (2 x 25 mg) PO BEDTIME 30 03/10/24 days #30 tabs polymyxin B sulfate 10,000 1 drp EYE-LEFT Q3H 10 days #10 mL 03/31/24 unit-trimethoprim 1 mg/mL eye drops Allergies Allergy/AdvReac Type Severity Reaction Status Date / Time No Known Drug Allergies Allergy Verified 02/13/23 04:21 Review of Systems Review of Systems ROS Unobtainable: All systems reviewed & are unremarkable except as noted in HPI and below Patient History Social History Smoking Status: Never smoker Smoking Status: Never smoker alcohol intake frequency: 0-2 drinks per day Substance Use Type: does not use Exam Narrative Exam Narrative: GEN: well nourished, well appearing female, alert and oriented x 3, patient appears to be in mild distress. HEENT: Atraumatic, pupils are equal round reactive to light, extraocular movements are intact, nares are clear, TMs are clear with no fluid, there is no conjunctival pallor. Throat is clear without any exudates, erythema, tonsillar enlargement or uvular deviation Visual acuity: right 20/70, left 20/70 without correction. IOP: Right [default value] mm Hg, Left 16 mm Hg General: no globe trauma Eyelids: normal inspection, eyelids everted for exam on left. Conjunctiva/Sclera: normal inspection Corneas: normal inspection, examined with fluroscein on on the left, patient has generalized uptake, no abrasions or ulcerations. EOM: intact, no palsy/entrapment Pupils: PERRL, normal accomadation, pupil normal Anterior Chambers: normal inspection, no hypema Posterior: normal fundoscopic on bilaterally HEART: Regular rate and rhythm without murmur, clicks, rubs. No carotid bruits, pulses are equal in upper and lower extremities LUNGS:Lungs clear to auscultation, no wheezes, rales, crackles, chest moves symmetrically MSCL: full range of motion, normal gait NEURO:CN 2-12 intact, sensation normal SKIN: No rash, erythema or other skin changes noted. Initial Vital Signs Initial Vital Signs: Vital Signs Temperature 96.7 F L 03/31/24 07:48 Pulse Rate 72 03/31/24 07:48 Respiratory Rate 16 03/31/24 07:48 Blood Pressure 105/64 03/31/24 07:48 Pulse Oximetry 100 03/31/24 07:48 Oxygen Delivery Method Room Air 03/31/24 07:48 Course Orders Ordered: Discontinued Medications Fluorescein Sodium (Fluorescein 1 Mg Strip) 1 mg EYE-BOTH NOW ONE Stop: 03/31/24 08:23 Last Admin: 03/31/24 08:34 Dose: 1 mg Proparacaine HCl (Proparacaine 0.5% Ophth [place]) 1 drops EYE-BOTH NOW ONE Stop: 03/31/24 08:23 Last Admin: 03/31/24 08:35 Dose: 1 drop Vital Signs Vital signs: Vital Signs - 8 hr 03/31/24 07:48 03/31/24 07:52 03/31/24 08:47 Temperature 96.7 F L Pulse Rate 72 72 70 Respiratory Rate 16 16 16 Blood Pressure 105/64 105/64 Pulse Oximetry 100 100 100 Oxygen Delivery Method Room Air Room Air Room Air MDM - Eye Problem MDM Narrative Medical decision making narrative: 23-year-old female with left eye discomfort, no sudden changes in vision thought she might have a body but has not had any activities that would cause that. Tried to flush it at home without any success. Eye exam shows equal visual acuity they are both 20/70 on both sides, she has some generalized uptake but no abrasions, ulcerations or obvious changes with fluorescein pressure is appropriate on exam. Patient's eye exam is overall reassuring suspect possible conjunctivitis but would like patient to follow up if not improving after a day or 2 of antibiotics. 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 Discussed return precautions. Discharge Plan Departure Patient Disposition: Home Clinical Impression: Acute conjunctivitis of left eye Instructions: DI for Conjunctivitis Activity Restrictions/Additional Instructions: Follow up with Ophthalmology for recheck in the next 2 or 3 days if you are not having any improvement with your antibiotic eyedrops. Your exam shows some mild generalized uptake but no scratches or abrasions, no foreign body appreciated the pressure in her eyes normal. Use eyedrops as directed, 1 drop to affected eye every 3 hours while awake. [facility] [place]. Start them today. You can use cool compresses to the affected eye as needed. Make sure any tissues or washcloth are washed promptly and not use by another individuals. You can take Tylenol up to a 1000 mg every 6 hours and ibuprofen up to 600 mg every 6 hours as needed for discomfort. Please return for rapidly worsening symptoms sudden decrease in vision, severe pain, new drainage, redness or swelling of the face or other new or concerning changes. Prescriptions: New polymyxin B sulf-trimethoprim 10,000 unit- 1 mg/mL drops 1 drp EYE-LEFT Q3H 10 Days Qty: 10 0RF Rx Instructions: One drop to the left eye every 3 hours while awake. No Action hydroxyzine HCl 25 mg tablet 50 mg PO BEDTIME 30 Days Qty: 30 0RF cephalexin 500 mg capsule 500 mg PO BID Qty: 10 0RF Referrals: ProviderRiki [Primary Care Provider] - Stand Alone Forms: Patient Portal/API, Work Release Note
[2024-03-31] MEDS: FLUORESCEIN 1 MG STRIP EYE-BOTH (08:34)
[2024-03-31] MEDS: PROPARACAINE 0.5% OPHTH SOL 1 DROPS EYE-BOTH (08:35)
[2024-03-31 08:47] VITALS: PULSE 70; RESP 16; O2SAT 100
== END 2024-03-31 08:48 | disposition home or self-care (01) ==
PROVIDERS: Emergency Provider Emergency Medicine
DX: H10.32 Unspecified acute conjunctivitis, left eye (principal)
CPT/HCPCS: 99282; 99283

== ENCOUNTER 2025-02-16 10:01 | Emergency (ER) | payer OTHER, SELFPAY ==
[2025-02-16 10:12] VITALS: BP 121/77; PULSE 74; RESP 16; TEMP 36.6; O2SAT 99; BMI 21.4
[2025-02-16] MEDS: SODIUM CHLORIDE 0.9% 1,000 ML 1000 ML IV ×2 (12:00→12:47)
[2025-02-16 12:27] LABS: Add Manual Diff / Slide Review NO; Basophils Absolute Auto 0 /uL (0-100); Basophils Percent Auto 0.5 % (0-2); Eosinophils Absolute Auto 0 /uL (0-450); Eosinophils Percent Auto 0.4 % (2-4); Hematocrit 35.6 % (36-46); Hemoglobin 11.8 g/dL (12.0-16.0); Lymphocytes Absolute Auto 1300 /uL (1100-4500); Lymphocytes Percent Auto 26.2 % (25-40); Mean Corpuscular HGB Conc 33.3 % (30-36); Mean Corpuscular Hemoglobin 28.5 PG (26-34); Mean Corpuscular Volume 85.8 fL (80-100); Monocytes Absolute Auto 400 /uL (0-900); Monocytes Percent Auto 7.4 % (3-14); Neutrophils Absolute Auto 3100 /uL (1500-7000); Neutrophils Percent Auto 65.5 % (50-75); Platelet Count 179 X10^3/uL (150-400); Red Blood Cell Count 4.15 X10^6/uL (4.0-5.2); Red Cell Distribution Width 14.5 % (11.6-14.8); White Blood Cell Count 4.8 X10^3/uL (4.5-11.0)
[2025-02-16 12:30] LABS: Appearance Urine UA CLOUDY; Bilirubin Urine UA NEGATIVE (NEGATIVE); Color Urine UA YELLOW; Glucose Urine UA NEGATIVE (Negative); Ketones Urine UA NEGATIVE (NEGATIVE); Leukocyte Esterase Urine UA TRACE (NEGATIVE); Nitrite Urine UA POSITIVE (Negative); Occult Blood Urine UA NEGATIVE (Negative); Protein Urine UA NEGATIVE (Negative)
--- NOTE | 2025-02-16 12:31 | PC.NURSE ---
Addendum entered by Maritza Dorsey R.N. 02/16/25 12:36: will also notify dr. hunter of vital signs obtained while feeling dizzy. Original Note: patient states when she was walking at work she felt herself leaning or falling to one side, she stopped and got assistance to sit down, then came to the hospital. states she did notice a smell to her urine yesterday. sample sent to lab. while sitting in reclined chair she states she is feeling dizzy again, will notifiy dr. carter.
[2025-02-16 12:32] LABS: Urine Volume 10mL (spun); pH Urine UA 6.5 (4.5-8.0)
[2025-02-16 12:34] VITALS: BP 101/71; PULSE 67; RESP 16; O2SAT 100
[2025-02-16 12:34] LABS: Bacteria Urine Many (>30); Culture Indicated Urine Specimen Cultured; RBC Urine None Seen (0-5/HPF); Squamous Epithelial Cell Urine 0-1 /HPF (0-5/HPF); WBC Urine 1-5/HPF (0-5/HPF)
[2025-02-16 12:38] LABS: Alanine Aminotransferase 12 IU/L (<35); Albumin 4.6 g/dL (3.5-5.0); Albumin Globulin Ratio 1.4 (1.0-2.8); Alkaline Phosphatase 53 U/L (38-126); Aspartate Aminotransferase 25 IU/L (14-36); BUN Creatinine Ratio 15.1 (6-22); Bilirubin Total 0.8 mg/dL (0.2-1.3); Blood Urea Nitrogen 11 mg/dL (7-17); Calcium 9.1 mg/dL (8.4-10.2); Carbon Dioxide 24 mmol/L (22-32); Chloride 106 mmol/L (98-107); Estimated Glomerular Filt Rate > 60 mL/min (>60); Globulin 3.4 g/dL (1.7-4.1); Glucose 85 mg/dL (70-99); HEMOLYSIS < 15 (0-50); Potassium 4.2 mmol/L (3.4-5.1); Sodium 138 mmol/L (137-145)
--- NOTE | 2025-02-16 12:42 | ED.GENADULT ---
HPI - General Adult General Chief complaint: Dizziness Stated complaint: Migraine and dizziness; feels like fainting Time Seen by Provider: 02/16/25 10:50 Source: patient Mode of arrival: Ambulatory History of Present Illness HPI narrative: 24-year-old woman with no significant medical issues presents today feeling significant positional dizziness a low-grade headache. She has not had similar symptoms. There is no fever, abdominal pain. This does not seem to be related to movement of her head to suggest benign positional vertigo. She is not complaining of dysuria, recent fevers, vaginal discharge, she believes she is not but states that checking that would be appropriate. She has a history of depression for which she was treated with Cymbalta and discontinued this 2 months ago and has been doing well without that medication Related Data Previous Rx's ?Medication ?Instructions ?Recorded cephalexin 500 mg capsule 500 mg PO BID #10 caps 02/13/23 cephalexin 500 mg capsule 500 mg PO TID #9 caps 02/16/25 Allergies Allergy/AdvReac Type Severity Reaction Status Date / Time No Known Drug Allergies Allergy Verified 02/13/23 04:21 Review of Systems Review of Systems Narrative: Pertinent positive and negative findings as per HPI Patient History Smoking Status: Current some day smoker tobacco type: vaping alcohol intake frequency: 0-2 drinks per day Exam Initial Vital Signs Initial Vital Signs: Vital Signs Temperature 97.9 F 02/16/25 10:12 Pulse Rate 74 02/16/25 10:12 Respiratory Rate 16 02/16/25 10:12 Blood Pressure 121/77 02/16/25 10:12 Pulse Oximetry 99 02/16/25 10:12 Oxygen Delivery Method Room Air 02/16/25 10:12 General: Healthy appearing, in no acute distress. Able to give a complete and coherent history. Well-nourished well-developed HEENT: Moist mucous membranes, normal sclera with reactive pupils, Respiratory: Lungs are clear to auscultation, no wheezing no rales no rhonchi. Full and symmetrical air movement Cardiac: Regular rate and rhythm no murmurs no bruits Abdomen: Soft, nontender, no rebound or guarding, no flank pain Skin: Warm and dry, no rashes Neurologic: Grossly neurologically intact with no obvious asymmetries or abnormalities Extremities: No trauma, well perfused Psych: Cooperative, appropriate insight and affect Course Orders Ordered: ED Orders 02/16/25 12:00 Complete Blood Count AUTO DIFF Stat Comprehensive Metabolic Panel Stat Urinalysis and Microscopic Stat Urine Culture Stat Discontinued Medications Sodium Chloride (Normal Saline 0.9%) 1,000 mls @ 1,000 mls/hr IV BOLUS ONE Stop: 02/16/25 12:12 Last Infusion: 02/16/25 12:40 Dose: Infused Documented By: Admin: 02/16/25 12:00 Dose: 1,000 mls/hr Documented By: BT Meclizine HCl (Meclizine Hcl 12.5 Mg Tablet) 25 mg PO NOW ONE Stop: 02/16/25 11:14 Last Admin: 02/16/25 12:16 Dose: Not Given Documented By: BT Ondansetron HCl (Ondansetron 4 Mg/2 Ml Inj) 4 mg IV NOW ONE Stop: 02/16/25 11:14 Last Admin: 02/16/25 12:16 Dose: Not Given Documented By: BT Vital Signs Vital signs: Vital Signs - 8 hr 02/16/25 10:12 02/16/25 12:34 Temperature 97.9 F Pulse Rate 74 67 Respiratory Rate 16 16 Blood Pressure 121/77 101/71 Pulse Oximetry 99 100 Oxygen Delivery Method Room Air Room Air Medical Decision Making Lab Data 02/16/25 12:00 02/16/25 12:00 Labs: Lab Results 02/16/25 Range/Units 12:00 WBC 4.8 (4.5-11.0) X10^3/uL RBC 4.15 (4.0-5.2) X10^6/uL Hgb 11.8 L (12.0-16.0) g/dL Hct 35.6 L (36-46) % MCV 85.8 (80-100) fL MCH 28.5 (26-34) PG MCHC 33.3 (30-36) % RDW 14.5 (11.6-14.8) % Plt Count 179 (150-400) X10^3/uL Neut % (Auto) 65.5 (50-75) % Lymph % (Auto) 26.2 (25-40) % [place] % (Auto) 7.4 (3-14) % Eos % (Auto) 0.4 L (2-4) % Baso % (Auto) 0.5 (0-2) % Neut # (Auto) 3100 (6436-8284) /uL Lymph # (Auto) 1300 (8330-9111) /uL [place] # (Auto) 400 (0-900) /uL Eos # (Auto) 0 (0-450) /uL Baso # (Auto) 0 (0-100) /uL Sodium 138 (137-145) mmol/L Potassium 4.2 (3.4-5.1) mmol/L Chloride 106 (98-107) mmol/L Carbon Dioxide 24 (22-32) mmol/L BUN 11 (7-17) mg/dL Creatinine 0.73 (0.52-1.04) mg/dL Estimated GFR > 60 (>60) mL/min BUN/Creatinine Ratio 15.1 (6-22) Glucose 85 (70-99) mg/dL Calcium 9.1 (8.4-10.2) mg/dL Total Bilirubin 0.8 (0.2-1.3) mg/dL AST 25 (14-36) IU/L ALT 12 (<35) IU/L Alkaline Phosphatase 53 (38-126) U/L Total Protein 8.0 (6.3-8.2) g/dL Albumin 4.6 (3.5-5.0) g/dL Globulin 3.4 (1.7-4.1) g/dL Albumin/Globulin Ratio 1.4 (1.0-2.8) Urine Color Yellow Urine Appearance Cloudy Urine pH 6.5 (4.5-8.0) Ur Specific [place] 1.020 (1.000-1.035) Urine Protein Negative (Negative) Urine Glucose (UA) Negative (Negative) g/dL Urine Ketones Negative (NEGATIVE) Urine Occult Blood Negative (Negative) Urine Nitrate Positive H (Negative) Urine Bilirubin Negative (NEGATIVE) Urine Urobilinogen 1.0 (0.2) E.U./dL Ur Leukocyte Esterase Trace H (NEGATIVE) Urine RBC None seen (0-5/HPF) Urine WBC 1-5/hpf (0-5/HPF) Ur Squamous Epith Cells 0-1 /hpf (0-5/HPF) Urine Bacteria Many (>30) H (None) Ur Culture Indicated? Specimen cultured Vol Urine Centrifuged 10ml (spun) Point of Care Testing Test Results Negative Point of care testing: Point of Care Testing Test Results Negative MDM Narrative Medical decision making narrative: CC: Low-grade headache, dizziness when she stands symptoms have been present for today only Data collected from: patient Differential considered: , viral syndrome, bacterial syndrome, severe anemia, electrolyte abnormalities, significant dehydration Exam documented above, pertinent findings include: Patient's exam is relatively benign. She does not have any symptoms of benign positional vertigo, she is orthostatic. Lab Test results independently reviewed as above. Pertinent findings: CBC is relatively unremarkable. Her H&H is 11.8 and 35.6 which is slightly lower than it was 2 years ago Chemistries are reassuring with normal creatinine and electrolytes Urinalysis has nitrites, leukocyte esterase and multiple bacteria specimen has been cultured Urine test is negative Re-evaluations: After blood work is back in initial L is infused, patient stands up to void and again has fairly notable orthostatic hypotension. A 2 L we will be given. In light of the positive urinalysis now returned we will go ahead and start her on ceftriaxone with presumed dehydration secondary to urinary tract infection without signs of sepsis or acute organ injury Discussion: 24-year-old woman with dizziness, orthostatic hypotension that has responded to 2 L of fluid. She is still occasionally dizzy but not quite so bad. She was found to have an incidental urinary tract infection without signs of pyelonephritis, sepsis or other systemic symptoms. She was given 2 g of ibuprofen in the emergency department and will complete 3 additional days of Keflex. There was no sign of benign positional vertigo, stroke or other pathology that would require further workup or hospitalization. Findings reviewed with the patient she is safe for discharge Discharge Plan Departure Patient Disposition: Home Clinical Impression: Urinary tract infection, Orthostatic hypotension, Dizziness Instructions: DI for Dehydration -- Adult, DI for Urinary Tract Infection (UTI) Activity Restrictions/Additional Instructions: Thank you for coming in today You were significantly dehydrated and were given 2 L of fluid. I suspect that was the majority of the reason for your dizziness. I did not find any evidence for severe bacterial infection, sepsis, kidney infection or anything that would require hospitalization. You do have a bladder infection, I started antibiotics in the emergency department to treat this and I am going to give you 3 days of Keflex to complete the full course This prescription was sent to [facility] in [place] Please make sure that you are drinking plenty of fluids If you find that you are getting worse or develop any new symptoms, please feel free to return to the emergency department for further evaluation. Prescriptions: New cephalexin 500 mg capsule 500 mg PO TID Qty: 9 0RF No Action cephalexin 500 mg capsule 500 mg PO BID Qty: 10 0RF Referrals: ProviderRiki [Primary Care Provider, Family Practice] Stand Alone Forms: Patient Portal/API, Work Release Note
[2025-02-16 13:15] VITALS: BP 110/81; PULSE 76; RESP 16; O2SAT 100
[2025-02-16] MEDS: cefTRIAXone 2,000 MG in SODIUM CHLORIDE 0.9% 100 ML 200 MG IV (13:17)
--- NOTE | 2025-02-16 14:01 | PC.NURSE ---
Pt seen and assessed by provider, pt with UTI, no cardiac issues
[2025-02-16 14:11] VITALS: BP 109/76; PULSE 84; RESP 18; O2SAT 98
== END 2025-02-16 14:37 | disposition home or self-care (01) ==
PROVIDERS: Emergency Provider Emergency Medicine
DX: N39.0 Urinary tract infection, site not specified (principal); I95.1 Orthostatic hypotension; R42 Dizziness and giddiness
CPT/HCPCS: 36415; 80053; 81001; 81025; 85025; 87077; 87086; 87186; 96361; 96365; 96375; 99284; J0696